=== PATIENT | male | born 1950 | race Two or more races ===

== ENCOUNTER 2020-09-12 14:31 | Emergency (ER) | payer OTHER ==
[~2020-09-12] VITALS: Ht 167.6 cm; Wt 55.8 kg
[2020-09-12] MEDS ORDERED: HYDROCHLOROTHIA25 MG PO (14:43)
[2020-09-12] MEDS ORDERED: CHILDREN'S ASPI81 MG PO (14:43)
[2020-09-12] MEDS ORDERED: OMEPRAZOLE MAGN20 MG PO (14:44)
[2020-09-12] MEDS ORDERED: AMLODIPINE-OLM1 EAC2 PO (14:44)
[2020-09-12] MEDS ORDERED: ZESTRIL40 M1 PO (14:44)
[2020-09-12] MEDS ORDERED: ZOFRAN8 MG PO (14:45)
[2020-09-12] MEDS ORDERED: DRONABINOL2.5 MG PO (16:42)
== END 2020-09-12 16:51 | disposition home or self-care (01) ==
LOC: ER 14:31
DX: R63.0 Anorexia (principal); R53.83 Other fatigue